=== PATIENT | male | born 1970 | race Caucasian/White ===

== ENCOUNTER → 2021-09-18 09:05 | Outpatient (CLI) | payer OTHER, SELFPAY ==
--- NOTE | ~2021-09-18 | MR_ITS ---
EXAMINATION: MR lumbar spine wo con EXAM DATE: 09/18/2021 09:46 INDICATION: Lumbar radiculopathy, low back pain, left hip and leg pain. Difficulty walking. TECHNIQUE: Multi-sequential, multiplanar MR images of the lumbar spine were obtained without contrast . Sagittal T1, T2, T2 fat saturation images. Axial T2 weighted images. There is no prior study for comparison. FINDINGS: There is rudimentary S1-S2 disc. Small hemangiomas within T12 and L4. Rather diffusely dark marrow signal, but not less than muscle, could be some amount of red marrow conversion. No suspiciou s focal marrow signal abnormalities. The conus medullaris terminates at the L1/2 level and has normal signal intensity and morphology. The vertebral bodies are aligned in the AP dimension. There is mil d to moderate diffuse thoracolumbar disc disease. Paraspinal soft tissue is unremarkable. Level by level evaluation: L1-L2: There is a minimal diffuse disc bulge. Facet arthropathy: Mild. Neural foraminal stenosis: No stenosis. Central canal stenosis: No stenosis. L2-L3: There is a mild diffuse disc bulge. Facet arthropathy: Mild. Neural foraminal stenosis: No stenosis. Central canal stenosis: No stenosis. L3-L4: There is a mild diffuse disc bulge. Facet arthropathy: Mild. Neural foraminal stenosis: Mild left. Central canal stenosis: No stenosis. L4-L5: There is a mild to moderate diffuse disc bulge. Facet arthropathy: Moderate. Neural foraminal stenosis: Moderate right, mild to moderate left. Central canal stenosis: Mild to moderate. L5-S1: There is a mild diffuse disc bulge. Facet arthropathy: Mild. Neural foraminal stenosis: Mild to moderate bilateral, left greater than right. Central canal stenosis: Mild. IMPRESSION: 1. Mild to moderate lumbar spondylosis. Reviewed, dictated and finalized at location B.
== END ==
PROVIDERS: Visit Provider Chiropractor
DX: M47.26 Other spondylosis with radiculopathy, lumbar region (principal)
CPT/HCPCS: 72148

== ENCOUNTER 2021-11-09 14:27 | Outpatient (CLI) | payer OTHER, SELFPAY ==
--- NOTE | ~2021-11-09 | MR_ITS ---
EXAMINATION: MR hip LT wo con DATE: 11/09/2021 15:46 INDICATION: Left hip pain and lack of mobility TECHNIQUE: Magnetic resonance imaging (MRI) of the left hip was performed without intravenous contra st. Sequences included full-field axial PD-weighted FS FSE and T1-weighted FSE, coronal of the pelvis with PD-weighted FS FSE, T2-weighted FSE and T1-weighted FSE, small field of view of the left hip w ith axial PD-weighted FS FSE, sagittal PD-weighted FS FSE, coronal PD-weighted FS FSE and coronal T2 weighted FSE. Additional radial T1-weighted FGR oriented orthogonal to the acetabular rim were obtai antonino for evaluation of the labrum. COMPARISON: None FINDINGS: Bones/labrum/cartilage: Bone alignment is normal. No fracture, avascular necrosis or pathologic marrow replacing process. Th ere is red marrow reexpansion previously visualized lower lumbar spine and to lesser degree in the pe lvis. There is severe osteoarthritis at the left hip with full/near full-thickness cartilage loss luis ng the anterior to anterosuperior right acetabulum and anteromedial aspect of the femoral head. Teari ng of the left acetabular labrum most severe at the superolateral to posterior superior labrum which has a thickened macerated appearance containing several para labral cysts. Moderate-sized hypertrophi c marginal osteophytes about the femoral head and smaller marginal osteophytes along the acetabulum. There is likely reactive marrow edema at the superolateral left femoral head where there is suggestio n of some subarticular cystic change with marrow edema extending inferiorly into the left femoral nec k. Less severe mild osteoarthritis at the right hip were additional less severe labral degeneration a s suggested but not diagnostically evaluated on the larger field of view images. Fluid: Moderate left hip joint effusion with synovitis at the inferior recess of the joint space. No right h ip joint effusion or other abnormal fluid collections. Soft tissues: Normal and symmetric muscle bulk and signal in the pelvis and visualized proximal thighs. The bilater al gluteal and proximal hamstring tendons are normal. Mild tendinopathy without discrete tear at the distal left iliopsoas tendon. Limited evaluation of visceral organs of the pelvis is unremarkable. N o pathologically enlarged pelvic/inguinal lymphadenopathy. IMPRESSION: 1. Severe left hip osteoarthritis and diffuse degenerative tearing of the labrum with a few small par a labral cysts moderate sized left hip joint effusion. 2. Mild right hip osteoarthritis with likely additional severe degenerative tearing of the right acet abular labrum which is suggestive but not diagnostically evaluated on the larger field of view images . 3. Mild tendinopathy without discrete tear at the distal left iliopsoas tendon. Reviewed, dictated and finalized at location H. [employer] IMPRESSION: 1. Severe left hip osteoarthritis and diffuse degenerative tearing of the labru m with a few small para labral cysts moderate sized left hip joint effusion. 2. Mild right hip osteoarthritis with likely additional severe degenerative tea ring of the right acetabular labrum which is suggestive but not diagnostically evaluated on the larger field of view images. 3. Mild tendinopathy without discrete tear at the distal left iliopsoas tendon.
--- NOTE | ~2021-11-09 | XR_ITS ---
EXAMINATION: XR hip LT min 2V DATE: 11/09/2021 14:45 INDICATION: Left hip dysfunction and pain TECHNIQUE: Anteroposterior and frog-leg lateral views of the left hip were obtained. COMPARISON: Left hip MRI dated 11/09/2021 FINDINGS: Alignment is normal. No fracture. Severe left hip osteoarthritis with prominent marginal osteophytes about the femoral head and smaller marginal osteophytes along the acetabular . The severe degree of j oint space narrowing evident on MRI at the anterior and anterosuperior aspect of the joint space is n ot well appreciated on the provided projections. Mild osteoarthritis at the bilateral sacroiliac join ts. IMPRESSION: 1. Severe left hip osteoarthritis. Reviewed, dictated and finalized at location H. [employer]
== END 2021-11-09 14:28 | disposition home or self-care (01) ==
LOC: ANHIMG 14:32
PROVIDERS: Visit Provider Chiropractor
DX: M16.12 Unilateral primary osteoarthritis, left hip (principal)
CPT/HCPCS: 73502; 73721